=== PATIENT | male | born 1990 | race Caucasian/White ===

== ENCOUNTER 2017-01-11 08:32 | Inpatient (IN) | payer BC, MEDICAID ==
[~2017-01-11] VITALS: Ht 177.8 cm; Wt 81.0 kg
[2017-01-11 09:01] LABS: HEMATOCRIT 48.2 % (39.2-51.8); HEMOGLOBIN 16.5 g/dL (13.7-18.0); WHITE BLOOD COUNT 5.9 x10^3/uL (3.4-10)
[2017-01-11 09:14] LABS: ASPARTATE AMINO TRANSFERASE 33 U/L (15-37); BLOOD UREA NITROGEN 16 mg/dL (7-18)
[2017-01-11 09:28] LABS: DAU SCREEN DISCLAIMER
[2017-01-11] MEDS ORDERED: ONDANSETRON 2MG/ML, 2ML IVPush ONE (09:30)
[2017-01-11] MEDS ORDERED: FAMOTIDINE 20 MG/2 ML IVP ONE (09:30)
[2017-01-11] MEDS ORDERED: SODIUM CHLORIDE 0.9% 1,000ML IVBOLUS ONE (10:00)
[2017-01-11] MEDS ORDERED: SODIUM CHLORIDE FLUSH 10ML SYR IVF ONE ×2 (10:00→14:30)
[2017-01-11] MEDS ORDERED: FAMOTIDINE 20 MG/2 ML ONE (10:03)
[2017-01-11] MEDS ORDERED: ONDANSETRON 2MG/ML, 2ML ONE (10:03)
[2017-01-11] MEDS ORDERED: OMNIPAQUE 350 MG/ML, 100ML BOTTLE ONE (12:02)
[2017-01-11] MEDS ORDERED: MORPHINE SULFATE 4 MG/ML, 1ML ONE (12:51)
[2017-01-11] MEDS ORDERED: MORPHINE SULFATE 4 MG/ML, 1ML IVPush PRN ×2 (13:00→14:00)
[2017-01-11] MEDS ORDERED: METRONIDAZOLE PMX 500MG/100ML 100 ML IV SCH (14:00)
[2017-01-11] MEDS ORDERED: NICOTINE 14MG/24 HR PATCH.TD24 TD ONE (14:00)
[2017-01-11] MEDS ORDERED: ONDANSETRON 2MG/ML, 2ML IVPush PRN (14:00)
[2017-01-11] MEDS ORDERED: hydrALAzine 20 MG/ML, 1ML IVPush PRN (14:00)
[2017-01-11] MEDS ORDERED: LORazepam 2 MG/ML, 1ML IVPush PRN (14:00)
[2017-01-11] MEDS ORDERED: CEFTRIAXONE PMX 1GM/50ML 50 ML IV SCH (14:00)
[2017-01-11 15:16] VITALS: BP 125/65
[2017-01-11] MEDS: SODIUM CHLORIDE 0.9% 1,000 ML IV SCH ×2 (16:58→22:41)
[2017-01-11 19:17] VITALS: BP 124/76
[2017-01-11] MEDS: PANTOPRAZOLE 40 MG IV IVPush SCH (21:02)
[2017-01-12 01:36] VITALS: BP 116/68
[2017-01-12] MEDS: SODIUM CHLORIDE 0.9% 1,000 ML IV SCH ×4 (05:28→21:05)
[2017-01-12 05:29] LABS: BLOOD UREA NITROGEN 12 mg/dL (7-18)
[2017-01-12 05:34] LABS: ASPARTATE AMINO TRANSFERASE 47 U/L (15-37)
[2017-01-12 07:04] VITALS: BP 122/67
[2017-01-12] MEDS: PANTOPRAZOLE 40 MG IV IVPush SCH (09:50)
[2017-01-12] MEDS ORDERED: GADOBUTROL 7.5 MMOL/7.5 ML PFS ONE (11:28)
[2017-01-12 13:49] VITALS: BP 134/72
[2017-01-12] MEDS: NICOTINE 14MG/24 HR PATCH.TD24 TD SCH (15:29)
[2017-01-12 19:36] VITALS: BP 138/94
[2017-01-12] MEDS: PANTOPROZOLE 40MG TABLET PO SCH (19:41)
[2017-01-13 03:10] VITALS: BP 107/59
[2017-01-13] MEDS: SODIUM CHLORIDE 0.9% 1,000 ML IV SCH (05:10)
[2017-01-13] MEDS: PANTOPROZOLE 40MG TABLET PO SCH (08:18)
[2017-01-13 08:19] VITALS: BP 144/81
[2017-01-13] MEDS ORDERED: NICO-486 TD (14:40)
[2017-01-13] MEDS ORDERED: OMEP-110 PO (14:40)
[2017-01-13] MEDS: NICOTINE 14MG/24 HR PATCH.TD24 TD SCH (14:46)
[2017-01-13] MEDS ORDERED: FLU VACC QS2017-18 (36MOS+) UP/PF 0.5 ML IM-VACC ONE (17:00)
[2017-01-13] MEDS ORDERED: PNEUMOCOCCAL 23 VACCINE IM-VACC ONE (17:00)
== END 2017-01-13 17:45 | disposition home or self-care (01) | DRG 392 ==
LOC: ED 10:22 → EDIP 13:04 → SUATTDRO 13:08 → 5SO 14:55 → DCLOUNGE 01-13 16:50
PROVIDERS: ADMIT Internal Medicine; ATTEND Internal Medicine
DX: K52.9 Noninfective gastroenteritis and colitis, unspecified (principal); I49.5 Sick sinus syndrome; R56.9 Unspecified convulsions; E86.0 Dehydration; F12.90 Cannabis use, unspecified, uncomplicated; Z96.1 Presence of intraocular lens; Z72.0 Tobacco use; Z80.3 Family history of malignant neoplasm of breast; Z80.52 Family history of malignant neoplasm of bladder; Z82.0 Family history of epilepsy and other diseases of the nervous system; Z98.42 Cataract extraction status, left eye
CPT/HCPCS: 36415; 70450; 70553; 71010; 74177; 80053; 80307; 81001; 83735; 84100; 84443; 85025; 90732; 93005; 93306; 95812; 96361; 96374; 96375; A9585; J2405; Q9967; C9113; G0479; J7030; S0028

== ENCOUNTER 2017-04-26 21:09 | Emergency (ER) | payer SELFPAY ==
[~2017-04-26] VITALS: Ht 180.3 cm; Wt 68.2 kg
[~2017-04-26 21:09] MED LIST: NICO-486 TD; OMEP-110 PO
[2017-04-26] MEDS ORDERED: SODIUM CHLORIDE FLUSH 10ML SYR IVF ONE (21:30)
[2017-04-26] MEDS ORDERED: DIAZEPAM 5 MG/ML, 2ML IVPush ONE (21:30)
[2017-04-26 21:32] LABS: BASOPHILS # (AUTO) 0.01 x10^3/uL (0-0.1); BASOPHILS % (AUTO) 0 % (0-1); EOSINOPHILS % (AUTO) 0 % (1-7); LYMPHOCYTES # (AUTO) 0.79 x10^3/uL (1-3.4); LYMPHOCYTES % (AUTO) 13 % (22-44); MD NO; MEAN CORPUSCULAR HEMOGLOBIN 30.8 pg (27.5-34.5); MEAN CORPUSCULAR HGB CONC 33.7 g/dL (33.2-36.2); MEAN CORPUSCULAR VOLUME 91.5 fL (81-97); MEAN PLATELET VOLUME 8.3 fL (7.4-10.4); MONOCYTES # (AUTO) 0.35 x10^3/uL (0.2-0.8); MONOCYTES % (AUTO) 6 % (2-9); NEUTROPHILS # (AUTO) 5.03 x10^3/uL (1.8-6.8); NEUTROPHILS % (AUTO) 81 % (42-75); PLATELET COUNT 185 x10^3/uL (130-400); RED BLOOD COUNT 5.29 x10^6/uL (4.38-5.82); RED CELL DISTRIBUTION WIDTH 13.4 % (9.4-14.8)
[2017-04-26 21:44] LABS: ALANINE AMINOTRANSFERASE 32 U/L (12-78); ALBUMIN 4.5 g/dL (3.4-5.0); ANION GAP 12 mmol/L (5-15); CALCIUM 8.7 mg/dL (8.5-10.1); CHLORIDE 106 mmol/L (98-107)
[2017-04-26 21:47] LABS: ALKALINE PHOSPHATASE 84 U/L (45-117); BILIRUBIN,TOTAL 0.7 mg/dL (0.2-1.0); CREATININE 1.07 mg/dL (0.7-1.3); TOTAL PROTEIN 8.3 g/dL (6.4-8.2)
[2017-04-26] MEDS ORDERED: DIAZEPAM 5 MG TABLET ONE (22:43)
[2017-04-26] MEDS ORDERED: DIAZEPAM 5 MG TABLET PO ONE (23:00)
[2017-04-27 00:51] LABS: AMPHETAMINE SCREEN, URINE Negative (Negative); BARBITURATE SCREEN, URINE Negative (Negative); BENZODIAZEPINE SCREEN, URINE Negative (Negative); CANNABINOID SCREEN, URINE Positive (Negative); COCAINE SCREEN, URINE Negative (Negative); METHADONE SCREEN, URINE Negative (Negative); OPIATE SCREEN, URINE Negative (Negative)
[2017-04-27 01:31] VITALS: BP 109/68
== END 2017-04-27 01:32 | disposition home or self-care (01) ==
LOC: ED 23:09
DX: R56.9 Unspecified convulsions (principal)
CPT/HCPCS: 36415; 80053; 80307; 85025; 99284

== ENCOUNTER 2019-11-23 17:25 | Emergency (ER) | payer SELFPAY ==
[~2019-11-23] VITALS: Ht 177.8 cm; Wt 72.6 kg
[2019-11-23 17:59] VITALS: BP 142/85
--- NOTE | 2019-11-23 20:25 | NUR ---
GREGOR NAYLOR SAW PT, THIS RN ATTEMPTED TO GIVE DC PAPERWORK, NO ANSWER IN DC.
--- NOTE | 2019-11-23 20:31 | NUR ---
STILL COULD NOT FIND PT, PAPERWORK AT CHARGE DESK HE LEFT BEFORE GETTING DC PAPERWORK/RX.
== END 2019-11-23 20:31 | disposition home or self-care (01) ==
LOC: ED 20:05
DX: K08.89 Other specified disorders of teeth and supporting structures (principal); F17.210 Nicotine dependence, cigarettes, uncomplicated; G40.909 Epilepsy, unspecified, not intractable, without status epilepticus
CPT/HCPCS: 99406

== ENCOUNTER 2020-04-15 06:30 | Emergency (ER) | payer MEDICAID ==
[~2020-04-15] VITALS: Ht 180.3 cm; Wt 78.0 kg
--- NOTE | 2020-04-15 06:33 | NUR ---
INITIAL PT CONTACT. BIBA C/O SEIZURE, APPROX 9 MIN. WITNESSED BY FRIEND. PT POST-ICTAL AT SCENE NOT UPON ARRIVAL TO ED. NO BOWEL OR BLADDER INCONTINENCE. + ORAL TRAUMA. PT SITTING UPRIGHT ON GURNEY, CONTINUOUS PULSE OX AND CARDIAC MONITORING IN PLACE. PT PROVIDED WARM BLANKETS PER REQUEST. DENIES ANY ADDITIONAL NEEDS AT THIS TIME. CALL LIGHT WITHIN REACH. ERP AT BEDSIDE.
--- NOTE | 2020-04-15 06:57 | NUR ---
I am assuming care of this pt from Yoon (rn) at this time. sbar report was exchanged at the bedside.
--- NOTE | 2020-04-15 06:57 | NUR ---
BEDSIDE REPORT TO KATH HAYES
[2020-04-15 06:59] LABS: BASOPHILS % (AUTO) 0 % (0-1); EOSINOPHILS % (AUTO) 1 % (1-7); LYMPHOCYTES % (AUTO) 9 % (22-44); MEAN CORPUSCULAR HGB CONC 35.2 g/dL (33.2-36.2); MEAN PLATELET VOLUME 8.4 fL (7.4-10.4); MONOCYTES % (AUTO) 13 % (2-9); NEUTROPHILS % (AUTO) 77 % (42-75); PLATELET COUNT 193 x10^3/uL (130-400); RED BLOOD COUNT 4.69 x10^6/uL (4.38-5.82); RED CELL DISTRIBUTION WIDTH 12.6 % (9.4-14.8)
[2020-04-15 07:00] LABS: MD NO
[2020-04-15 07:05] LABS: ALBUMIN 4.5 g/dL (3.4-5.0); ANION GAP 6 mmol/L (5-15); CHLORIDE 107 mmol/L (98-107); CREATININE 1.11 mg/dL (0.7-1.3)
--- NOTE | 2020-04-15 07:22 | NUR ---
pt feels light headed w nausea and intermittent tachycardia. md is aware, and i will medicate as ordered.
[2020-04-15] MEDS ORDERED: LEVETIRACETAM 500 MG in SODIUM CHLORIDE 0.9% 100 ML IV ONE (07:30)
[2020-04-15 08:04] VITALS: BP 121/74
--- NOTE | 2020-04-15 08:04 | NUR ---
pt feeling significant improvement after iv med. vs have stabilized. is aware, and will recheck maddie.
== END 2020-04-15 08:31 | disposition home or self-care (01) ==
LOC: ED 06:57
DX: G40.309 Generalized idiopathic epilepsy and epileptic syndromes, not intractable, without status epilepticus (principal); Z72.820 Sleep deprivation; R00.0 Tachycardia, unspecified; Z87.891 Personal history of nicotine dependence
CPT/HCPCS: 36415; 80048; 82040; 85025; 93005; 96374; 99284; J1953